=== PATIENT | female | born 1980 | race Caucasian/White ===

== ENCOUNTER 2024-05-03 01:20 | Emergency (ER) | payer OTHER, SELFPAY ==
[2024-05-03 01:21] VITALS: BP 127/82; PULSE 87; RESP 16; TEMP 36.8; O2SAT 99; BMI 16.6
[2024-05-03] MEDS: Acetaminophen 325 MG TABLET 975 MG PO (01:30)
--- NOTE | 2024-05-03 01:53 | MHC.EDTECH ---
this tech assumed care of pt@ 0141, AFTERNOON [employer] and strep swab obtained and sent to lab, VS taken recently in triage and stable, no blood work at this time. Verbal reassurance given, pt made no request at this time.
[2024-05-03 02:33] LABS: Influenza A PCR NEGATIVE (Negative); Influenza B PCR NEGATIVE (Negative); Resp Syncy Virus RNA Qual PCR NEGATIVE (Negative); SARS COV2 PCR INHOUSE NEGATIVE (Negative)
[2024-05-03 02:43] LABS: IDNOW Serial# 58CA691E; Strep A Nucleic Acid Negative (Negative)
--- NOTE | 2024-05-03 03:25 | ED_ITS ---
HPI - General Adult General Chief complaint: Upper Respiratory Symptoms Stated complaint: General Medical Time Seen by Provider: 05/03/24 02:22 Source: patient Limitations: no limitations History of Present Illness ED Provider: Eleonora Marques PA-C HPI narrative: 43-year-old female presents with sore throat times 2 days. Associated bilateral ear pressure. Patient states it feels as if she was swallowing gla ss . Denies fever. Denies cough or cold symptoms. Related Data Allergies Allergy/AdvReac Type Severity Reaction Status Date / Time ibuprofen [From MOTRIN] Allergy Intermediate rash Verified 05/03/24 01:25 Penicillins [PENICILLINS] Allergy Intermediate rash Verified 05/03/24 01:25 Review of Systems Review of Systems: Yes all other systems are reviewed and are negative Constitutional: Constitutional: Denies fatigue and Denies fever(s) ENT: Reports otalgia and Reports sore throat Cardiovascular: Cardiovascular: Denies chest pain and Denies dyspnea Respiratory: Respiratory: Denies cough and Denies dyspnea Gastrointestinal: Gastrointestinal: Denies abdominal pain Endocrine: Endocrine: Denies fatigue [facility] Past Medical History Attestation statement: The following information was validated with the patient. Social History Social History Alcohol intake: current Alcohol intake frequency: holidays/special occasions only Smoked in Last 30 Days: Yes Use of substances other than those prescribed or required for medical reasons: Yes Substance Use Type: Marijuana Substance Use Frequency: Occasionally Advance Directives: No Advance Directives Information Provided: No Do you have a plan to hurt others: No Plan Patient : No Physical Exam ED Vital Signs: Vital Signs - 24 hr 05/03/24 01:21 Temperature 98.2 F Pulse Rate 87 Respiratory Rate 16 Blood Pressure 127/82 Pulse Oximetry 99 Oxygen Delivery Method Room Air BMI result Body Mass Index 16.6 Const Other: Alert Orientation/consciousness: patient oriented x3 HENMT Other: oropharynx is erythematous, without exudate, no trismus no drooling, no sublingual fluctuance, no swelling inferior to the jawline, uvula is midline. bilateral TMs are dull, with fluid, no overlying erythema or exudate, no tragal tenderness Neck Other: anterior cervical lymphadenopathy noted Resp Effort & Inspection: normal respiratory effort Cardio Other: normal peripheral perfusion Skin Other: warm dry no rash Neuro General: patient oriented x3, gait normal, no focal motor deficits and CN's II- XI intact bilaterally Psych Other: cooperative Medications Administered Discontinued Medications Generic Name Dose Route Start Last Admin Trade Name Hilda PRN Reason Stop Dose Admin Acetaminophen 975 mg 05/03/24 01:26 05/03/24 01:30 Acetaminophen 325 Mg Tablet PO 05/03/24 01:27 975 mg ONCE ONE Administration Medical Decision Making Medical Decision Making [facility] Narrative: 43-year-old female presents with sore throat times 2 days. Associated bilateral ear pressure. Patient states it feels as if she was swallowing glass . Denies fever. Denies cough or cold symptoms. no chronic issues History: Per patient I have considered the following differential diagnoses: OE, om, RPA, COLD ROLL P[employer] SHE[employer] IRON, strep pharyngitis, viral pharyngitis Plan: Viral panel and strep screen were ordered from triage, everything is negative. This is viral. There were no concerning findings for RPA or COLD ROLL P[employer] SHE[employer] IRON. In regard to her ear exam, she was serous otitis, from her congestion. We will send with home care instructions. I have independently reviewed the following tests: Viral panel negative strep screen negative Lab Data Labs: Lab Results 05/03/24 Range/Units 01:48 Influenza Type A (PCR) NEGATIVE (Negative) Influenza Type B (PCR) NEGATIVE (Negative) RSV RNA Qual (PCR) NEGATIVE (Negative) SARS-CoV-2 RNA (RT-PCR) NEGATIVE (Negative) S. pyogenes GrpA ROYA Negative (Negative) Discharge Plan Discharge Clinical Impression: Pharyngitis, Viral infection Patient Disposition: Home, Self-Care Instructions: Pharyngitis (ED), Viral Syndrome (ED) Additional Instructions: the strep throat screen was negative, the viral panel was negative. We screened you for influenza RSV and COVID. You have yet another respiratory virus that has been circulating within the community causing your symptoms. In regard to your ear pressure/ pain, you can use either [id number] Claritin or Zyrtec to help alleviate the congestion. In regard to your sore throat, you can use [id number] ibuprofen, 600 mg taken every 6 hours with food for your pain. In addition, warm saltwater gargles are very helpful. Follow up with your primary care provider as needed. Stand Alone Forms: Work/School Release Print Language: Citizen Of [place]
[2024-05-03] MEDS: Lidocaine HCl Viscous 2 % 15 ML SOLUTION MUCOUS MEM (03:30)
[2024-05-03] MEDS: dexAMETHasone 2 MG TABLET 10 MG PO (03:30)
[2024-05-03] MEDS: Magnesium Hydrox/Alum Hydrox 30 ML ORAL.SUSP PO (03:30)
[2024-05-03 03:41] VITALS: BP 136/79; PULSE 84; RESP 16; TEMP 37; O2SAT 98
== END 2024-05-03 03:42 | disposition home or self-care (01) ==
PROVIDERS: Emergency Provider Emergency Medicine
DX: B34.9 Viral infection, unspecified (principal); J02.9 Acute pharyngitis, unspecified; H65.93 Unspecified nonsuppurative otitis media, bilateral; H92.03 Otalgia, bilateral; Z03.818 Encounter for observation for suspected exposure to other biological agents ruled out
CPT/HCPCS: 0241U; 87651; 99283; 99284; J8540